=== PATIENT | female | born 1995 | race Caucasian/White ===

== ENCOUNTER 2021-01-03 20:41 | Emergency (ER) | payer MEDICAID ==
[~2021-01-03] VITALS: Ht 162.6 cm; Wt 73.0 kg
[~2021-01-03 20:41] MED LIST: LEVO1TAB56 PO; VENL75CA PO
[2021-01-03 20:43] VITALS: BP 104/55
--- NOTE | 2021-01-03 20:50 | NUR ---
PT BIBA. PER EMS PT HAD APPROX 3/4 OF A BOTTLE OF TEQUILA TONIGHT. PT REFUSING TO ANSWER MOST QUESTIONS, PT DOES STATE SHE HAS NO MEDICAL HX. PER EMS PT MAY HAVE ALSO TAKEN PILLS, BUT FRIENDS AT SCENE ARE NOT SURE. PT RESTING IN GURNEY, MONITORING IN PLACE, FRIEND AT BEDSIDE, RUTH.
--- NOTE | 2021-01-03 21:00 | NUR ---
REPORT TO SONIA BYERS.
--- NOTE | 2021-01-03 21:47 | NUR ---
TASK RN: PT ASSISTED TO RESTROOM, CONTINUES TO HAVE UNSTEADY GAIT AT THIS TIME. PT BACK TO BED RESTING FRIEND AT BEDSIDE
--- NOTE | 2021-01-03 22:25 | NUR ---
pt a/o x4, pt requesting to leave. pt ambulated around room and hernandez without difficulty. pt friend with pt rest of the night and is pt ride home.
== END 2021-01-03 22:28 | disposition home or self-care (01) ==
LOC: ED 22:27
DX: F10.120 Alcohol abuse with intoxication, uncomplicated (principal); R11.10 Vomiting, unspecified; Z72.9 Problem related to lifestyle, unspecified; Y90.0 Blood alcohol level of less than 20 mg/100 ml
CPT/HCPCS: 99283